=== PATIENT | female | born 1990 | race Asian ===

== ENCOUNTER → 2016-04-20 | Outpatient (CLI) | payer OTHER ==
[~2016-04-20] MED LIST: PRENTAB26 PO
[2016-04-20 15:33] LABS: BASO % 0.2 %; BASO ABS # 0.01 K/uL (0-0.2); COMPLETE YES; EOS % 1.7 %; IG% 0.2 %; LYMPH % 31.7 %; LYMPH ABS # 1.71 K/uL (1.2-3.4); MEAN CELL VOLUME 85.2 fL (80-100); MEAN CORPUSCULAR HGB CONC 36.4 g/dl (32-36); MEAN PLATELET VOLUME 9.2 fL (7.4-10.4); MONO % 8.3 %; NEUT % 57.9 %; PLATELET COUNT 223 K/uL (130-400); RED BLOOD COUNT 4.58 M/uL (4.2-5.4)
== END | disposition home or self-care (01) ==
LOC: C.LAB1850 14:37
PROVIDERS: ATTEND Internal Medicine
DX: M54.5 Low back pain (principal)

== ENCOUNTER → 2016-04-24 | Outpatient (CLI) | payer OTHER ==
--- NOTE | 2016-04-24 13:02 | DIAGNOSTIC IMAGING REPORT ---
PARASPINAL SOFT TISSUE LUMBAR ULTRASOUND CLINICAL HISTORY: Lumbar pain. Swelling and fullness. COMPARISON STUDY: No previous studies for comparison. FINDINGS: Ultrasonographic evaluation was performed in the lumbar paraspinal region. No masses were visualized. There are no abnormal fluid collections. IMPRESSION: No ultrasonographic abnormalities identified. Electronically signed by: Miguel Curiel M.D. 04/24/2016 1:01 PM Dictated Date/Time: 04/24/2016 12:59 PM
== END | disposition home or self-care (01) ==
LOC: C.ULTRBC 12:18
PROVIDERS: ATTEND Internal Medicine
DX: M54.5 Low back pain (principal)